=== PATIENT | female | born 1930 | race Caucasian/White ===

== ENCOUNTER 2019-07-24 02:04 | Inpatient (IN) ==
[2019-07-24] MEDS ORDERED: Naloxone 0.4 MG/ML INJ IVP PRN (03:26)
[2019-07-24] MEDS ORDERED: Acetaminophen 325 MG TABLET PO PRN (03:26)
[2019-07-24] MEDS ORDERED: 0.9 % Sodium Chloride 1,000 ML IVC SCH (03:30)
[2019-07-24 05:18] LABS: Basophils % 0.4 %; Eosinophils % 0.5 %; Hematocrit 30.2 % (35.3-44.9); Hemoglobin 9.3 g/dL (11.5-15.4); Immature Granulocytes % 0.2 % (0-4); Lymphocytes # 0.7 K/mcL (0.6-4.6); Lymphocytes % 13.3 %; Mean Corpuscular HGB Conc 30.8 g/dL (31.6-35.5); Mean Corpuscular Hemoglobin 26.2 pg (28.0-33.3); Mean Corpuscular Volume 85.1 fL (83.0-100.0); Monocytes # 0.3 K/mcL (0.0-1.3); Monocytes % 5.3 %; Neutrophils # 4.4 K/mcL (1.6-8.9); Platelet Count 235 K/mcL (140-400); Red Blood Count 3.55 M/mcL (3.82-4.97); Red Cell Distribution Width 16.7 % (11.5-14.5); Segmented Neutrophils % 80.3 %; White Blood Count 5.5 K/mcL (4.3-11.1)
[2019-07-24 05:23] LABS: Prothrombin Time 11.9 Seconds (9.4-12.1)
[2019-07-24] MEDS: Pantoprazole 40 MG VIAL IVP SCH ×2 (05:37→17:52)
[2019-07-24 05:40] LABS: BUN/Creatinine Ratio 8 (6-26); Blood Urea Nitrogen 6 mg/dL (8-23); Calcium 8.1 mg/dL (8.6-10.3); Carbon Dioxide 20 mEq/L (23-29); Chloride 110 mEq/L (98-107); Glucose 93 mg/dL (70-105); Osmolality,Calculated 287 (280-300); Potassium 3.3 mEq/L (3.5-5.1); Sodium 140 mEq/L (136-145); eGFR For African Americans > 60 (> 60); eGFR For Non-African Americans > 60 (> 60)
[2019-07-24] MEDS ORDERED: *HR* Dextrose 50 % in Water (Syg) 50 ML SYRINGE IVP PRN (08:07)
[2019-07-24] MEDS ORDERED: Dextrose Gel 15 GM/37.5 ML TUBE PO PRN ×2 (08:07)
[2019-07-24] MEDS ORDERED: D5% in Water 1,000 ML IVC PRN (08:07)
[2019-07-24] MEDS ORDERED: Ondansetron 4 MG/2 ML VIAL IVP PRN (08:08)
[2019-07-24 09:36] LABS: Basophils % 0.5 %; Eosinophils % 0.8 %; Hematocrit 29.9 % (35.3-44.9); Hemoglobin 9.1 g/dL (11.5-15.4); Immature Granulocytes % 0.3 % (0-4); Lymphocytes # 0.6 K/mcL (0.6-4.6); Lymphocytes % 15.4 %; Mean Corpuscular HGB Conc 30.4 g/dL (31.6-35.5); Mean Corpuscular Volume 85.4 fL (83.0-100.0); Mean Platelet Volume 9.8 fL (9.4-12.4); Monocytes # 0.4 K/mcL (0.0-1.3); Monocytes % 9.6 %; Neutrophils # 2.8 K/mcL (1.6-8.9); Platelet Count 228 K/mcL (140-400); Red Cell Distribution Width 16.9 % (11.5-14.5); Segmented Neutrophils % 73.4 %; White Blood Count 3.8 K/mcL (4.3-11.1)
[2019-07-24] MEDS: D5% in Lactated Ringers 1,000 ML IVC SCH ×2 (09:50→23:10)
[2019-07-24 13:25] LABS: Bilirubin,Urine Negative (Negative); Blood,Urine Negative (Negative); Color,Urine Yellow (Yellow); Glucose,Urine (UA) Normal (Normal); Ketones,Urine Negative (Negative); Leukocyte Esterase,Urine Small (Negative); Nitrite,Urine Negative (Negative); Protein,Urine Negative (Neg-Trace); Urobilinogen,Urine Normal (Normal)
[2019-07-24 13:28] LABS: Bacteria,Urine None Seen per hpf (None-Few); Hyaline Casts,Urine None Seen per lpf (None-Few); Squamous Epithelial Cell,Urine Many per lpf (None-Few); WBC,Urine 0-3 per hpf (0-3)
[2019-07-24 13:29] LABS: Clarity,Urine Clear (Clear)
[2019-07-24 13:37] LABS: Basophils % 0.3 %; Eosinophils # 0.1 K/mcL (0.0-0.6); Eosinophils % 1.6 %; Hematocrit 30.3 % (35.3-44.9); Hemoglobin 9.4 g/dL (11.5-15.4); Immature Granulocytes % 0.3 % (0-4); Lymphocytes # 0.5 K/mcL (0.6-4.6); Lymphocytes % 17.6 %; Mean Corpuscular Hemoglobin 25.5 pg (28.0-33.3); Mean Corpuscular Volume 82.3 fL (83.0-100.0); Mean Platelet Volume 10.5 fL (9.4-12.4); Monocytes # 0.3 K/mcL (0.0-1.3); Monocytes % 10.1 %; Neutrophils # 2.2 K/mcL (1.6-8.9); Platelet Count 256 K/mcL (140-400); Red Blood Count 3.68 M/mcL (3.82-4.97); Red Cell Distribution Width 16.9 % (11.5-14.5); Segmented Neutrophils % 70.1 %; White Blood Count 3.1 K/mcL (4.3-11.1)
[2019-07-24] MEDS: Insulin LISPRO 300 UNITS/3 ML VIAL SQ SCH ×2 (14:02→17:53)
[2019-07-24 14:40] LABS: Eosinophils % 1.3 %; Hematocrit 29.5 % (35.3-44.9); Hemoglobin 9.3 g/dL (11.5-15.4); Immature Granulocytes % 0.3 % (0-4); Lymphocytes # 0.7 K/mcL (0.6-4.6); Lymphocytes % 23.3 %; Mean Corpuscular HGB Conc 31.5 g/dL (31.6-35.5); Mean Corpuscular Hemoglobin 25.8 pg (28.0-33.3); Mean Corpuscular Volume 81.9 fL (83.0-100.0); Mean Platelet Volume 10.4 fL (9.4-12.4); Monocytes # 0.3 K/mcL (0.0-1.3); Monocytes % 9.6 %; Neutrophils # 1.9 K/mcL (1.6-8.9); Platelet Count 248 K/mcL (140-400); Red Cell Distribution Width 16.9 % (11.5-14.5); Segmented Neutrophils % 64.5 %
[2019-07-24] MEDS ORDERED: *HR* Midazolam HCl 5 MG/5 ML VIAL IVP ONE ×2 (17:07→17:13)
[2019-07-24] MEDS ORDERED: Tetracaine/Benzocaine/Butamben 1 SPRAY AEROSOL MM ONE (17:07)
[2019-07-24] MEDS ORDERED: *HR* FentaNYL (PF) 100 MCG/2 ML VIAL IVP ONE (17:07)
[2019-07-24] MEDS ORDERED: *HR* FentaNYL (PF) 100 MCG/2 ML VIAL ONE (17:13)
[2019-07-24] MEDS ORDERED: LIPASE PO PRN (17:47)
[2019-07-24] MEDS ORDERED: [UNRECOGNIZED DRUG - OTHER] PO PRN (17:47)
[2019-07-24] MEDS ORDERED: AMYLASE PO PRN (17:47)
[2019-07-24] MEDS ORDERED: PROTEASE PO PRN (17:47)
[2019-07-24 20:31] LABS: Basophils % 0.7 %; Eosinophils # 0.1 K/mcL (0.0-0.6); Hematocrit 31.3 % (35.3-44.9); Hemoglobin 9.6 g/dL (11.5-15.4); Immature Granulocytes % 0.3 % (0-4); Lymphocytes # 0.9 K/mcL (0.6-4.6); Lymphocytes % 30.8 %; Mean Corpuscular HGB Conc 30.7 g/dL (31.6-35.5); Mean Corpuscular Hemoglobin 25.9 pg (28.0-33.3); Mean Corpuscular Volume 84.4 fL (83.0-100.0); Mean Platelet Volume 9.9 fL (9.4-12.4); Monocytes # 0.4 K/mcL (0.0-1.3); Monocytes % 14.1 %; Neutrophils # 1.6 K/mcL (1.6-8.9); Platelet Count 223 K/mcL (140-400); Red Blood Count 3.71 M/mcL (3.82-4.97); Red Cell Distribution Width 17.1 % (11.5-14.5); Segmented Neutrophils % 51.1 %; White Blood Count 3.1 K/mcL (4.3-11.1)
[2019-07-25] MEDS: Insulin LISPRO 300 UNITS/3 ML VIAL SQ SCH ×2 (00:53→06:43)
[2019-07-25 04:40] VITALS: BP 115/44
[2019-07-25] MEDS: Pantoprazole 40 MG VIAL IVP SCH (06:33)
[2019-07-25 08:46] LABS: Hematocrit 32.4 % (35.3-44.9); Hemoglobin 10.1 g/dL (11.5-15.4)
[2019-07-25 09:02] LABS: Phosphorous 3.6 mg/dL (2.7-4.5)
[2019-07-25 09:03] LABS: BUN/Creatinine Ratio 6 (6-26); Blood Urea Nitrogen 4 mg/dL (8-23); Calcium 8.2 mg/dL (8.6-10.3); Carbon Dioxide 24 mEq/L (23-29); Chloride 112 mEq/L (98-107); Glucose 98 mg/dL (70-105); Osmolality,Calculated 299 (280-300); Potassium 4.1 mEq/L (3.5-5.1); Sodium 146 mEq/L (136-145); eGFR For African Americans > 60 (> 60); eGFR For Non-African Americans > 60 (> 60)
[2019-07-25] MEDS ORDERED: Sucralfate 1 GM TABLET PO SCH (11:30)
== END 2019-07-25 12:25 | DRG 392 ==
LOC: 3ANU → SUATTDRO 02:04
PROVIDERS: ADMIT Internal Medicine; ATTEND Internal Medicine